=== PATIENT | male | born 1970 ===

== ENCOUNTER 2018-10-13 12:13 | Day surgery (SDC) | payer OTHER ==
[~2018-10-13] VITALS: Ht 182.9 cm; Wt 116.1 kg
[2018-10-13] VITALS (10 sets, daily range): BP systolic 115–151; BP diastolic 77–95
--- NOTE | 2018-10-13 09:22 | Pre-Procedure Note/Attestation ---
Pre-Procedure Note/Attestation Complete Prior to Procedure Planned Procedure: left Procedure Narrative: shoulder arthroscopy, sad possible left knee arthroscopy medical menisectomy Indications for Procedure Pre-Operative Diagnosis: left shoulder arthritis/impingement and left knee meniscus tear Attestation I attest that I discussed the nature of the procedure; its benefits; risks and complications; and alternatives (and the risks and benefits of such alternatives ), prior to the procedure, with the patient (or the patient's legal community health representative). I attest that, if there was a reasonable possibility of needing a blood transfusion, the patient (or the patient's legal community health representative) was given the [facility] standardized written summary, pursuant to the [place] Blood Safety Act ([place] Health and Safety Code # 1645, as amended). I attest that I re-evaluated the patient just prior to the surgery and that there has been no change in the patient's H&P, except as documented below: William Chaudhry MD Oct 13, 2018 09:22
--- NOTE | 2018-10-13 09:22 | Operative Note - PDOC ---
Operative Note Operative Note Pre-op Diagnosis: left shoulder arthritis/impingement and left knee meniscus tear Procedure: see op report Post-op Diagnosis: same as pre-op plus Operative Findings: consistent w/pre-op dx studies Anesthesia: regional Specimen: none Complications: none Condition: stable Estimated Blood Loss: none Implant(s) used?: No William Chaudhry MD Oct 13, 2018 09:22
[~2018-10-13 12:13] MED LIST: COREG6.25 MG ORAL; HYDROcodone/Acetamin 5/325 tab ORAL PRN; HYDROmorphone 1mg/ml Carpuject SUBQ PRN; LOSARTAN POTASS25 M1 PO; Tylenol #3 tab (300mg/30mg) ORAL PRN; ceFAZolin 1gm IVPB IVPB ONE; celeBREX 200mg Cap **SURGERY PATIENTS ONLY ORAL ONE; oxyCONTIN 20mg tab ORAL ONE
[2018-10-13] MEDS ORDERED: celeBREX 200mg Cap **SURGERY PATIENTS ONLY ORAL ONE (13:06)
[2018-10-13] MEDS ORDERED: oxyCONTIN 20mg tab ORAL ONE (13:06)
[2018-10-13] MEDS ORDERED: LR 1000ml 1,000 ML IVLG SCH (13:50)
--- NOTE | 2018-10-13 13:51 | Anethesia Preoperative Eval ---
Anesthesia Pre-op PMH/ROS General Date of Evaluation: Oct 13, 2018 Time of Evaluation: 14:31 Anesthesiologist: Carline ASA Score: ASA 3 Mallampati Score Class I : Soft palate, uvula, fauces, pillars visible Class II: Soft palate, uvula, fauces visible Class III: Soft palate, base of uvula visible Class IV: Only hard plate visible Mallampati Classification: Class III Surgeon: Isidoro Diagnosis: L Shoulder Pain Surgical Procedure: L Shoulder Arthroscopy Anesthesia History: none Family History: no anesthesia problems Allergies: Coded Allergies: No Known Allergies (Unverified , 10/12/18) Medications: see eMAR Patient NPO?: Yes Past Medical History Cardiovascular: Reports: HTN Pulmonary: Reports: asthma Other: obesity - BMI 35 Anesthesia Pre-op Phys. Exam Physician Exam Last Vital Signs Date Time Temp Pulse Resp B/P (MAP) Pulse Ox O2 Delivery O2 Flow Rate FiO2 10/13/18 13:11 Room Air 10/13/18 12:44 98.2 74 18 136/95 98 Constitutional: NAD Neurologic: CN 2-12 intact Cardiovascular: RRR Respiratory: CTA Gastrointestinal: S/NT/ND Airway Exam Mallampati Score: Class III MO: full ROM: limited Teeth: intact Anesthesia Pre-op A/P Risk Assessment & Plan Assessment: ASA 3 Plan: GA, SED, L Supraclavicular Block Status Change Before Surgery: No Pre-Antibiotics Dru Grams Ancef IV Given Within 1 Hr of Incision: Yes Time Given: 14:49 Chris Crowley MD Oct 13, 2018 13:51
[2018-10-13] MEDS ORDERED: Ropivacaine 5mg/ml Vial 30ml INJ ONE (13:56)
[2018-10-13] MEDS ORDERED: Lidocaine 1% MPF 10mg/ml 5ml ONE (13:56)
[2018-10-13] MEDS ORDERED: Sodium Chloride 10ml vial INJ ONE (13:56)
[2018-10-13] MEDS ORDERED: Propofol 200mg/20ml IV ONE (13:56)
[2018-10-13] MEDS ORDERED: Dexamethasone 4mg/ml vial ONE (13:56)
[2018-10-13] MEDS ORDERED: LORazepam Inj 2mg/ml 1ml IV PRN (14:00)
[2018-10-13] MEDS ORDERED: DiphenhydrAMINE 50mg/ml Inj IVP PRN (14:00)
[2018-10-13] MEDS ORDERED: HYDROcodone/Acetamin 7.5/325 tab ORAL PRN (14:00)
[2018-10-13] MEDS ORDERED: oxyCODONE HCL/Acetaminophen 5/325mg ORAL PRN (14:00)
[2018-10-13] MEDS ORDERED: Meperidine 50mg/ml Inj(FOR RIGORS ONLY) IVP PRN (14:00)
[2018-10-13] MEDS ORDERED: Bupivacaine 0.25% Inj 30ml INJ ONE (14:00)
[2018-10-13] MEDS ORDERED: Hydromorphone 0.5mg/0.5ml inj IVP PRN (14:00)
[2018-10-13] MEDS ORDERED: Labetalol 5mg/ml 20ml vial IV PRN (14:00)
[2018-10-13] MEDS ORDERED: Metoclopramide 10mg/2ml Inj IVP PRN (14:00)
[2018-10-13] MEDS ORDERED: Midazolam 2mg/2ml Inj IVP PRN (14:00)
[2018-10-13] MEDS ORDERED: MORPHINE SULFATE ONE (14:00)
[2018-10-13] MEDS ORDERED: HYDROcodone/Acetamin 5/325 tab ORAL PRN (14:00)
[2018-10-13] MEDS ORDERED: EPINEPHrine 1mg/1ml Amp ONE (14:00)
[2018-10-13] MEDS ORDERED: Kenalog-40 1ml Vial ONE (14:00)
[2018-10-13] MEDS ORDERED: fentaNYL 100 mcg/2 mL IV PRN (14:00)
[2018-10-13] MEDS ORDERED: Lidocaine 1% 10mg/ml/Epi 0.005mg/ml 30ml vial INJ ONE (14:00)
[2018-10-13] MEDS ORDERED: Atropine Sulfate 0.4mg/ml inj IVP PRN (14:00)
[2018-10-13] MEDS ORDERED: Ketorolac 30mg Inj IV PRN ×2 (14:00)
[2018-10-13] MEDS ORDERED: Ketorolac 30mg Inj ONE (14:00)
[2018-10-13] MEDS ORDERED: NS Irrig 4000ml IRRIG ONE (14:30)
[2018-10-13] MEDS ORDERED: LR 1000ml ONE (14:30)
[2018-10-13] MEDS ORDERED: Sterile Water Irrig 1000ml IRRIG ONE (14:30)
[2018-10-13] MEDS ORDERED: Alfentanil 2ml Inj ONE (14:39)
--- NOTE | 2018-10-13 15:11 | Immediate Post-Op Evaluation ---
Immediate Post-Op Evalulation Immediate Post-Op Evalulation Procedure: L Shoulder Arthroscopy, L Knee Arthroscopy Date of Evaluation: Oct 13, 2018 Time of Evaluation: 16:53 IV Fluids: 700 LR Blood Products: 0 Estimated Blood Loss: 20 Urinary Output: 0 Blood Pressure Systolic: 125 Blood Pressure Diastolic: 77 Pulse Rate: 72 Respiratory Rate: 16 O2 Sat by Pulse Oximetry: 94 Temperature (Fahrenheit): 97.6 Pain Score (1-10): 2 Nausea: No Vomiting: No Complications 0 Patient Status: awake, reacts, patent, none Hydration Status: adequate Dru grams Ancef IV Given Within 1 Hr of Incision: Yes Time Given: 14:49 Chris Crowley MD Oct 13, 2018 15:11
--- NOTE | 2018-10-13 15:11 | 48 Hour Post Anesthesia Eval ---
Post Anesthesia Evaluation Procedure: L Shoulder Arthroscopy, L Knee Arthroscopy Date of Evaluation: Oct 13, 2018 Time of Evaluation: 19:58 Blood Pressure Systolic: 132 0: 91 Pulse Rate: 75 Respiratory Rate: 18 Temperature (Fahrenheit): 98.2 O2 Sat by Pulse Oximetry: 97 Airway: patent Nausea: No Vomiting: No Pain Intensity: 2 Hydration Status: adequate Cardiopulmonary Status: Stable Mental Status/LOC: patient returned to baseline Follow-up Care/Observations: 0 Post-Anesthesia Complications: 0 Follow-up care needed: ready to discharge Chris Crowley MD Oct 13, 2018 15:11
[2018-10-13] MEDS ORDERED: Duramorph PF 10mg/10ml amp EPIDUR ONE ×2 (15:33→16:21)
[2018-10-13] MEDS ORDERED: Acetaminophen (Non formulary) 100 ML IV ONE (15:45)
[2018-10-13] MEDS ORDERED: fentaNYL 100 mcg/2 mL IV ONE (16:17)
[2018-10-13] MEDS ORDERED: Kenalog-40 1ml Vial IARTIC ONE (16:44)
[2018-10-13] MEDS ORDERED: D5 1/2NS 1,000 ML IV SCH (17:00)
--- NOTE | 2018-10-14 00:45 | Operative Note - Dictated ---
DATE OF OPERATION: 10/13/2018 PREOPERATIVE DIAGNOSIS: 1. Left shoulder biceps tenosynovitis. 2. Left shoulder subacromial bursitis. 3. Left shoulder chondral damage. 4. Left shoulder AC joint sprain/arthrotomy . 5. Left knee internal derangement secondary to meniscal tear. 6. Synovial hypertrophic fat pad syndrome. 7. Left knee chondral damage. POSTOPERATIVE DIAGNOSIS: 1. Left shoulder grade 3 and grade 4 chondral damage of glenoid. 2. Biceps tenosynovitis. 3. Impingement syndrome/hypertrophic bursitis. 4. Left knee medial meniscus tear and lateral meniscus tear. 5. Grade 2 chondral damage medial femoral condyle. 6. Hypertrophic fat pad syndrome/synovitis. 7. Left shoulder partial articular-sided supraspinatus tendon tear. 8. Partial anterior cruciate ligament sprain. PROCEDURES: 1. Left shoulder diagnostic arthroscopy with extensive intra-articular debridement. 2. Left shoulder subacromial decompression bursectomy with release of CA ligament. 3. Left knee arthroscopic medial lateral meniscectomy. 4. Left knee arthroscopic medial lateral patellofemoral compartment Synovectomy. SURGEON: William Chaudhry M.D. ANESTHESIA: General interscalene. INDICATION FOR PROCEDURE: This is a pleasant gentleman, who has had significant injury to his left and right shoulder. Given that he had positive findings and failed conservative treatment, he elected to undergo diagnostic arthroscopy. Risks, limitations, expectations, and complications of procedure were discussed in detail particularly in his left shoulder. He understood that his ability to perform more activities maybe self limited given the underlying chondral damage which may or may not get better with the arthroscopic procedure. He understood that attempted diagnostic arthroscopy, chondroplasty, synovectomy, and subacromial decompression bursectomy would potentially improve his ability to activities, but no guarantees were made. Regarding to his left knee, he had an MRI, which showed a meniscal tear along with some chondral damage and discussion regarding efficacy of arthroscopy for meniscus versus chondral pathology was discussed in detail. All questions were addressed. DESCRIPTION OF PROCEDURE: After informed consent was obtained, the patient was brought to the operating room and placed under interscalene general anesthesia. Left leg was prepped and draped in a sterile manner and time-out was performed. Ancef was administered. The posterolateral stab incision was then made. Trocar was introduced into the left shoulder joint. There was significant chondral damage at the glenoid particularly there is fraying of the anterior labrum extending superiorly to the biceps tendon and some tenosynovitis. Also, the acromion appeared to be intact. The anterior shaver was then placed in the glenohumeral joint. Extensive debridement of the glenoid as well as the anterior labrum was performed. The biceps tendon was subluxed medially. There is no gross subluxation. The undersurface of the acromion had a slight partial rotator cuff tear, which was debrided. Once this was done, the camera was repositioned in the subacromial space. There was hypertrophic bursal tissue, which was removed to identify the acromion. He had a pretty significant acromial spur. The acromioplasty was started from lateral to medial and completed from posterior to anterior. Once that was done, the instruments were removed. Portal sites were closed with 3-0 Monocryl sutures. The patient had no issues with the surgery. It was to restrict for, therefore, it was felt it was safe to proceed with left knee arthroscopy. The patient was then placed in the supine position. Left leg was prepped and draped in a sterile manner. Time-out was performed. Portal sites were injected with 1% lidocaine with epinephrine. Inferolateral stab incision was then made. Trocar was introduced into the knee joint. There is hypertrophic fat pad and synovial tissue in the patellofemoral compartment. Medial gutter was entered and free of any loose bodies. Medial compartment was entered. There was a tear of the posterior horn medial meniscus. Partial meniscectomy with ____ biters and angella was performed. Excision of the fat pad and synovial tissue anteriorly was performed to better visualize the anterior horn. This extended into the intercondylar notch. The ligamentum mucosa was debrided to better visualize the ACL. There was some longitudinal tears along the length of the anterior cruciate ligament, but attachment femoral and tibial attachment was intact. At this point, the camera was placed in the lateral compartment. There was a tear of the posterior horn lateral meniscus. A partial lateral meniscectomy was performed. The camera was then repositioned in the patellofemoral compartment. Excision and synovectomy was completed. Once that was done, the instruments were removed. Portal sites were closed with 3-0 Monocryl sutures. [place]-Strips and a sterile dressing were applied. The patient was awoken and taken to recovery room with stable vital signs. ESTIMATED BLOOD LOSS: None. COMPLICATIONS: None. SPECIMENS: None. IMPLANTS: None. William Chaudhry M.D. DR: BELLA JOB#: [id number] CC:
== END 2018-10-13 18:47 | disposition home or self-care (01) ==
LOC: SUR 12:13
DX: M75.42 Impingement syndrome of left shoulder (principal); M75.22 Bicipital tendinitis, left shoulder; S83.242A Other tear of medial meniscus, current injury, left knee, initial encounter; S83.282A Other tear of lateral meniscus, current injury, left knee, initial encounter; X58.XXXA Exposure to other specified factors, initial encounter; Y92.9 Unspecified place or not applicable; M79.4 Hypertrophy of (infrapatellar) fat pad; S83.512A Sprain of anterior cruciate ligament of left knee, initial encounter; M75.112 Incomplete rotator cuff tear or rupture of left shoulder, not specified as traumatic; I10 Essential (primary) hypertension
CPT/HCPCS: 29823; 29876; 29881; J0171; J1100; J1885; J2250; J2274; J2405; J2704; J2795; J3010; J3301; J3490; 94003; 94150